=== PATIENT | male | born 1960 | race Caucasian/White ===

== ENCOUNTER 2024-07-04 18:17 | Emergency (ER) | payer SELFPAY ==
[~2024-07-04] VITALS: Ht 177.8 cm; Wt 68.0 kg
[2024-07-04 18:20] VITALS: PULSE 124; O2SAT 97
[2024-07-04 18:35] VITALS: BP 129/87; RESP 16; TEMP 36.6; O2SAT 98
== END 2024-07-04 22:35 | disposition left against medical advice (07) ==
LOC: ER 18:17
DX: M54.50 Low back pain, unspecified (principal); I10 Essential (primary) hypertension; Z53.21 Procedure and treatment not carried out due to patient leaving prior to being seen by health care provider; Z98.890 Other specified postprocedural states